=== PATIENT | male | born 1995 | race American Indian/Alaskan Native ===

== ENCOUNTER 2016-06-23 09:32 | Emergency (ER) | payer SELFPAY ==
[2016-06-23 09:42] VITALS: BP 121/79
[2016-06-23] MEDS ORDERED: MOTRIN PO ONE (12:14)
--- NOTE | 2016-06-23 12:18 | Emergency Department Report ---
ED Back Pain/Injury HPI - General Chief Complaint: Fall Stated Complaint: PAIN IN BACK AND RT SIDE Time Seen by Provider: 06/23/16 12:13 Source: patient Limitations: No Limitations - History of Present Illness Initial Comments: A 21-year-old male comes in for complaint of back pain that started yesterday after he fell while leaving [employer] restaurant. Patient complains of back and right side pain. Denies hitting his head no loss of consciousness no nausea no vomiting no blood in his urine. Patient discloses he took 2 Tylenol regular strength without much relief. MD Complaint: fall - Related Data Previous Rx's Medication Instructions Recorded Last Taken Type Ibuprofen [Motrin 600 MG tab] 600 mg PO Q8H PRN #20 tablet 06/23/16 Unknown Rx methOCARBAMOL [Robaxin TAB] 500 mg PO BID #20 tab 06/23/16 Unknown Rx Allergies Allergy/AdvReac Type Severity Reaction Status Date / Time No Known Allergies Allergy Unverified 06/23/16 09:38 ED Review of Systems ROS: Stated complaint: PAIN IN BACK AND RT SIDE Other details as noted in HPI Musculoskeletal: back pain (mostly on the right) ED Past Medical Hx - Past Medical History Previous Medical History?: No - Surgical History Past Surgical History?: No - Social History Smoking Status: Never Smoker Substance Use Type: Alcohol, Marijuana - Medications Home Medications: Home Medications Medication Instructions Recorded Confirmed Last Taken Type Ibuprofen [Motrin 600 MG tab] 600 mg PO Q8H PRN #20 tablet 06/23/16 Unknown Rx methOCARBAMOL [Robaxin TAB] 500 mg PO BID #20 tab 06/23/16 Unknown Rx ED Physical Exam - General Limitations: No Limitations General appearance: alert, in no apparent distress - Head Head exam: Present: atraumatic, normocephalic - Back Exam Back exam: Present: normal inspection, full ROM, tenderness (right lumbar), muscle spasm. Absent: CVA tenderness (R), CVA tenderness (L) - Expanded Back Exam Expanded Back exam: Negative Straight Leg Raising: Left - Neurological Exam Neurological exam: Present: alert, oriented X3 - Psychiatric Psychiatric exam: Present: normal affect ED Course Vital Signs 06/23/16 09:38 Temperature 98.2 F Pulse Rate 50 L Respiratory 18 Rate Blood Pressure 121/79 O2 Sat by Pulse 100 Oximetry ED Medical Decision Making - Medical Decision Making Since been evaluated by this provider. Based on history and physical examination does note an imaging needed. We will give patient ibuprofen 800 mg now and discharged patient on Robaxin and ibuprofen for pain. Have patient follow-up with the primary care provider if symptoms get worse or continues. In verbalize understanding. Critical care attestation.: If time is entered above; I have spent that time in minutes in the direct care of this critically ill patient, excluding procedure time. ED Disposition Clinical Impression: Fall Qualifiers: Encounter type: initial encounter Qualified Code(s): W19.XXXA - Unspecified fall, initial encounter Back pain Qualifiers: Back pain location: thoracic back pain Chronicity: acute Back pain laterality: right Qualified Code(s): M54.6 - Pain in thoracic spine Disposition: DISCHARGED TO HOME OR SELFCARE Is pt being admited?: No Does the pt Need Aspirin: No Condition: Stable Instructions: Back Pain (ED) Additional Instructions: Pain medication as prescribed rest follow-up with the primary care provider pain gets worse Prescriptions: Ibuprofen [Motrin 600 MG tab] 600 mg PO Q8H PRN #20 tablet PRN Reason: Pain methOCARBAMOL [Robaxin TAB] 500 mg PO BID #20 tab Referrals: PRIMARY MD JYOTI [Primary Care Provider] - 3-5 Days PARISA IYER MD [Staff Physician] - 3-5 Days Forms: Work/School Release Form(ED)
== END 2016-06-23 12:30 | disposition home or self-care (01) ==
LOC: ED 09:32
DX: M54.6 Pain in thoracic spine (principal); W18.39XA Other fall on same level, initial encounter; Y93.89 Activity, other specified; Y92.59 Other trade areas as the place of occurrence of the external cause; Y99.8 Other external cause status; F12.10 Cannabis abuse, uncomplicated
CPT/HCPCS: 99282

== ENCOUNTER 2016-11-28 20:09 | Emergency (ER) | payer SELFPAY ==
[2016-11-28 20:42] VITALS: BP 126/84
[2016-11-28 21:08] LABS: Alanine Aminotransferase 10 units/L (7-56); Albumin 4.1 g/dL (3.9-5); Albumin/Globulin Ratio 1.5 %; Alkaline Phosphatase 56 units/L (35-129); Anion Gap 16 mmol/L; BUN/Creatinine Ratio 13.75; Blood Urea Nitrogen 11 mg/dL (9-20); Calcium 8.9 mg/dL (8.4-10.2); Carbon Dioxide 27 mmol/L (22-30); Chloride 100.6 mmol/L (98-107); Glucose 95 mg/dL (75-100); Lipase 15 units/L (13-60); Potassium 3.9 mmol/L (3.6-5.0); Sodium 140 mmol/L (137-145); Total Protein 6.8 g/dL (6.3-8.2)
[2016-11-28 21:14] LABS: Basophils % (Auto) 0.3 % (0.0-1.8); Eosinophils % (Auto) 0.5 % (0.0-4.3); Hematocrit 39.1 % (35.5-45.6); Hemoglobin 12.8 gm/dl (11.8-15.2); Mean Corpuscular HGB Conc 33 % (32-34); Mean Corpuscular Hemoglobin 30 pg (28-32); Mean Corpuscular Volume 91 fl (84-94); Platelet Count 157 K/mm3 (140-440); Red Blood Count 4.29 M/mm3 (3.65-5.03)
[2016-11-28 21:29] LABS: Bilirubin,Urine NEG (Negative); Blood,Urine NEG (Negative); Ketones,Urine NEG (Negative); Leukocyte Esterase,Urine NEG (Negative); Mucus,Urine 2+ /HPF; Nitrite,Urine NEG (Negative); Protein,Urine <15 mg/dL mg/dL (Negative)
[2016-11-28] MEDS ORDERED: PEPCID ONE (21:58)
[2016-11-28] MEDS ORDERED: ZOFRAN ODT ONE (21:58)
[2016-11-28] MEDS ORDERED: LIDOCAINE VISCOUS 2% ONE (22:00)
[2016-11-28] MEDS ORDERED: ALUM-MAG HYDROX-SIMETH 200-200-20MG/5ML ONE (22:00)
[2016-11-28] MEDS ORDERED: LIDOCAINE VISCOUS 2% PO ONE (22:07)
[2016-11-28] MEDS ORDERED: ALUM-MAG HYDROX-SIMETH 200-200-20MG/5ML PO ONE (22:08)
[2016-11-28] MEDS ORDERED: PEPCID PO ONE (22:08)
[2016-11-28] MEDS ORDERED: ZOFRAN ODT PO ONE (22:08)
--- NOTE | 2016-11-28 22:42 | Emergency Department Report ---
ED Abdominal Pain HPI - General Chief Complaint: Abdominal Pain Stated Complaint: ABD/VOMITING Time Seen by Provider: 11/28/16 22:36 Source: patient Mode of arrival: Ambulatory Limitations: No Limitations - History of Present Illness Initial Comments: 21-year-old male past medical history marijuana use presents complaining of 2 days of intermittent nausea episodes of vomiting, a few episodes of diarrhea. Last vomited earlier today. Denies any bloody diarrhea or emesis. Denies any fever or chills denies any abdominal pain no recent travel outside the country. States that stomachache and nausea began 2 days ago after eating fast food at [employer]. Became nauseous within a few hours after eating a large meal from [employer]. On my exam patient is awake alert and oriented nontoxic appearing does not appear particularly uncomfortable states that the GI cocktail he received in triage is made his stomach feel significantly better and he does not feel nauseous at this time. States he has drank some water without throwing it up. Denies any recent antibiotic use denies any abdominal trauma. Has not taken any medicine for his sx's. Patient states he has been urinating and defecating normally today MD Complaint: abdominal pain Onset/Timin -: days(s) Radiation: none Severity scale (0 -10): 3 Context: possible food poisoning Associated Symptoms: nausea, vomiting, diarrhea - Related Data Previous Rx's Medication Instructions Recorded Last Taken Type Ibuprofen [Motrin 600 MG tab] 600 mg PO Q8H PRN #20 tablet 06/23/16 Unknown Rx methOCARBAMOL [Robaxin TAB] 500 mg PO BID #20 tab 06/23/16 Unknown Rx Bismuth Subsalicylate 10 ml PO Q6H PRN #1 bottle 11/28/16 Unknown Rx [Pepto-Bismol] Famotidine [Pepcid] 20 mg PO BID PRN #1 bottle 11/28/16 Unknown Rx Ondansetron [Zofran Odt] 4 mg PO Q8HR PRN #12 tab.rapdis 11/28/16 Unknown Rx Allergies Allergy/AdvReac Type Severity Reaction Status Date / Time No Known Allergies Allergy Verified 11/28/16 21:59 ED Review of Systems ROS: Stated complaint: ABD/VOMITING Other details as noted in HPI Constitutional: denies: chills, fever Eyes: denies: eye pain, eye discharge, vision change ENT: denies: ear pain, throat pain Respiratory: denies: cough, shortness of breath, wheezing Cardiovascular: denies: chest pain, palpitations Endocrine: no symptoms reported Gastrointestinal: abdominal pain, nausea, vomiting. denies: diarrhea Genitourinary: denies: urgency, dysuria Musculoskeletal: denies: back pain, joint swelling, arthralgia Skin: denies: rash, lesions Neurological: denies: headache, weakness, paresthesias Psychiatric: denies: anxiety, depression Hematological/Lymphatic: denies: easy bleeding, easy bruising ED Past Medical Hx - Past Medical History Previous Medical History?: No - Surgical History Past Surgical History?: No - Social History Smoking Status: Current Some Day Smoker Substance Use Type: Marijuana - Medications Home Medications: Home Medications Medication Instructions Recorded Confirmed Last Taken Type Ibuprofen [Motrin 600 MG tab] 600 mg PO Q8H PRN #20 tablet 06/23/16 Unknown Rx methOCARBAMOL [Robaxin TAB] 500 mg PO BID #20 tab 06/23/16 Unknown Rx Bismuth Subsalicylate 10 ml PO Q6H PRN #1 bottle 11/28/16 Unknown Rx [Pepto-Bismol] Famotidine [Pepcid] 20 mg PO BID PRN #1 bottle 11/28/16 Unknown Rx Ondansetron [Zofran Odt] 4 mg PO Q8HR PRN #12 tab.rapdis 11/28/16 Unknown Rx ED Physical Exam - General Limitations: No Limitations General appearance: alert, in no apparent distress - Head Head exam: Present: atraumatic, normocephalic - Eye Eye exam: Present: normal appearance, PERRL, EOMI - ENT ENT exam: Present: mucous membranes moist - Neck Neck exam: Present: normal inspection - Respiratory Respiratory exam: Present: normal lung sounds bilaterally. Absent: respiratory distress - Cardiovascular Cardiovascular Exam: Present: regular rate, normal rhythm. Absent: systolic murmur, diastolic murmur, rubs, gallop - GI/Abdominal GI/Abdominal exam: Present: soft (abdomen soft or 4 quadrants no tenderness at McBurney's point negative Lawler sign negative iliopsoas and negative Rovsing sign and no clinical signs of appendicitis no clinical signs of pancreatitis no pain in the epigastric region, no CVA tenderness), normal bowel sounds (bowel sounds positive for quadrants) - Rectal Rectal exam: Present: deferred - Extremities Exam Extremities exam: Present: normal inspection - Back Exam Back exam: Present: normal inspection - Neurological Exam Neurological exam: Present: alert, oriented X3 - Psychiatric Psychiatric exam: Present: normal affect, normal mood - Skin Skin exam: Present: warm, dry, intact, normal color. Absent: rash ED Course Vital Signs 11/28/16 20:15 Temperature 98.6 F Pulse Rate 66 Respiratory 16 Rate Blood Pressure 126/84 [Right] O2 Sat by Pulse 100 Oximetry ED Medical Decision Making - Lab Data Result diagrams: 11/28/16 20:35 11/28/16 20:35 - Medical Decision Making A/P: Acute gastroenteritis, possible food poisoning now resolving 1-Pepcid when necessary, Zofran when necessary, Pepto-Bismol when necessary 2-follow-up with primary care doctor 3-labs and abdominal exam are unremarkable. no clinical signs or hx of appendicitus, pancreatitis, pyelo or bowel obstruction. pt advised the patient to return to the ED if he develops fevers chills persistent nausea and vomiting with inability to tolerate anything by mouth 4- pt states he smokes marijuana weekly, possible cyclic vomiting syndrome? i advised pt to curtail his marijuana use Critical care attestation.: If time is entered above; I have spent that time in minutes in the direct care of this critically ill patient, excluding procedure time. ED Disposition Clinical Impression: Acute gastroenteritis Disposition: - TO HOME OR SELFCARE Is pt being admited?: No Does the pt Need Aspirin: No Condition: Stable Instructions: Gastroenteritis (ED), Food Poisoning (ED), Acute Nausea and Vomiting (ED) Prescriptions: Bismuth Subsalicylate [Pepto-Bismol] 10 ml PO Q6H PRN #1 bottle PRN Reason: Indigestion Famotidine [Pepcid] 20 mg PO BID PRN #1 bottle PRN Reason: Indigestion Ondansetron [Zofran Odt] 4 mg PO Q8HR PRN #12 tab.rapdis PRN Reason: Nausea Referrals: [facility] [Provider Group] - 3-5 Days [facility] [Provider Group] - 3-5 Days Time of Disposition: 22:46
== END 2016-11-28 23:22 | disposition home or self-care (01) ==
LOC: ED 20:09
DX: K52.9 Noninfective gastroenteritis and colitis, unspecified (principal); F12.90 Cannabis use, unspecified, uncomplicated; Z72.0 Tobacco use
CPT/HCPCS: 36415; 80053; 81001; 83690; 85025; 99283; Q0162